=== PATIENT | male | born 1970 | race Caucasian/White ===

== ENCOUNTER 2018-02-03 11:10 | Emergency (ER) | payer OTHER ==
--- NOTE | 2018-02-03 11:17 | EDPHY ---
H & P Stated Complaint: PNEUMOTHORAX Time Seen by Provider: 02/03/18 11:17 HPI/ROS: CHIEF COMPLAINT: Right-sided chest pain, dyspnea, diagnosed with pneumothorax is outpatient HISTORY OF PRESENT ILLNESS: The patient presents to the ED with right-sided chest pain and dyspnea. The patient's symptoms began over the weekend while [place]. The patient's symptoms persisted throughout the weekend which prompted him to seek care with his primary care provider. A outpatient x- ray was obtained which demonstrated a moderate right pneumothorax with possible mild tamponade. The patient denies a history of fall prior to his pneumothorax. He had not been coughing. The patient denies prior history of pneumothorax or other significant medical complaints. REVIEW OF SYSTEMS: A comprehensive 10 point review of systems is otherwise negative aside from elements mentioned in the history of present illness. Source: Patient Exam Limitations: No limitations - Personal History Current Tetanus/Diphtheria Vaccine: Unsure - Medical/Surgical History Hx Asthma: No Hx Chronic Respiratory Disease: No Hx Diabetes: No Hx Cardiac Disease: No Hx Renal Disease: No Hx Cirrhosis: No Hx Alcoholism: No Hx HIV/AIDS: No Hx Splenectomy or Spleen Trauma: No Other PMH: TONSILLECTOMY - Social History Smoking Status: Never smoked - Physical Exam Exam: General Appearance: Alert, no distress Eyes: Pupils equal and round no pallor or injection ENT, Mouth: Mucous membranes moist Respiratory: Decreased breath sounds right lung rosales Cardiovascular: Regular rate and rhythm Gastrointestinal: Abdomen is soft and nontender, no masses, bowel sounds normal Neurological: 5/5 strength all 4 extremities Skin: Warm and dry, no rashes Musculoskeletal: Neck is supple nontender Extremities: symmetrical, full range of motion Constitutional: Initial Vital Signs Temperature (C) 36.6 C 02/03/18 11:13 Heart Rate 57 L 02/03/18 11:13 Respiratory Rate 18 02/03/18 11:13 Blood Pressure 136/85 H 02/03/18 11:13 O2 Sat (%) 98 02/03/18 11:13 O2 Delivery Mode Non-Rebreather Mask O2 (L/minute) 15 Allergies/Adverse Reactions: No Known Allergies Allergy (Unverified 02/03/18 11:12) Home Medications: Medication Instructions Recorded oxyCODONE IR [Oxycodone Ir (*)] 5 mg PO Q6 PRN #20 tab 02/03/18 Medical Decision Making - Diagnostics Imaging Results: Imaging Impressions Chest X-Ray 02/03/18 10:22 Impression: Moderate right pneumothorax, possibly with a small amount of tension. Results called to Astrid Briceno at 10:39 AM, as requested. Chest X-Ray 02/03/18 11:47 Impression: Improving right pneumothorax post chest tube placement. Procedures: Procedure: Chest tube placement. Indication: Spontaneous pneumothorax. Risks, benefits, alternatives discussed with the patient including but not limited to bleeding, infection, internal organ injury, and collapsed lung and consent obtained. A timeout was observed. Full maximal sterile barrier technique was used including cap, gown, sterile gloves, large sheet, hand washing and chlorhexidine prep. The area was anesthetized with 1% lidocaine. A small bore Heimlich valve [place] chest tube was placed in the 5th intercostal space on the right side. The tube was sutured in place and dressed. Post placement chest x-ray demonstrated the tube to be in the appropriate position. Following placement of the tube the patient's condition was improved. The patient tolerated the procedure well and there were no complications. The procedure was performed by myself, Dr. Alonso Kearney. ED Course/Re-evaluation: I reviewed the patient's outpatient x-ray. I did verbally consent the patient to undergo placement of a small bore thoracostomy tube. The patient was informed of the risks and benefits including inadequate drainage of the pneumothorax and need for larger bore tube placement. The patient's postprocedure chest x-ray demonstrates improvement of his pneumothorax. The patient was observed in the emergency department. His pain is well controlled. I did curbside Dr. Walker who will be happy to see the patient in the office tomorrow. He has been given her contact information. The patient will be given a prescription for oxycodone. Differential Diagnosis: Differential diagnosis considered includes pneumothorax, hemothorax, rib fracture, tamponade Departure - Departure Disposition: Home, Routine, Self-Care Clinical Impression: Spontaneous pneumothorax Condition: Good Instructions: Spontaneous Pneumothorax (ED) Additional Instructions: 1. Take Ibuprofen or Motrin 600 mg by mouth three times a day. 2. Oxycodone as needed for severe pain 3. Please contact Dr. Walker's office tomorrow to schedule a follow-up visit. Please be sure to tell them that you were in the emergency department and your case was discussed with Dr. Walker 4. Return to the emergency department for any difficulty breathing, severe pain or other concerns. Referrals: Valerie Walker MD [Medical Doctor] - As per Instructions Prescriptions: oxyCODONE IR [Oxycodone Ir (*)] 5 mg PO Q6 PRN #20 tab PRN Reason: for pain
[2018-02-03] MEDS ORDERED: fentaNYL 100 MCG/2 ML INJ ONE (11:35)
[2018-02-03 13:04] VITALS: BP 112/74
[2018-02-03] MEDS ORDERED: fentaNYL 100 MCG/2 ML INJ IVP ONE (13:05)
== END 2018-02-03 13:27 | disposition home or self-care (01) ==
LOC: EDSTATUS 11:10
PROC: 0W9930Z Drainage of Right Pleural Cavity with Drainage Device, Percutaneous Approach (ICD-10-PCS; principal; 2018-02-03)
DX: J93.83 Other pneumothorax (principal)
CPT/HCPCS: 96374; J3010

== ENCOUNTER → 2018-02-05 | Outpatient (CLI) | payer OTHER | LOC: FIMAGING 14:12 | PROVIDERS: ATTEND Surgery | DX: J93.9 Pneumothorax, unspecified (principal) ==

== ENCOUNTER → 2018-02-12 | Outpatient (CLI) | payer OTHER | LOC: FIMAGING 13:27 | PROVIDERS: ATTEND Surgery | DX: J93.9 Pneumothorax, unspecified (principal) ==